=== PATIENT | female | born 1950 | race Caucasian/White ===

== ENCOUNTER → 2019-07-29 | Outpatient (CLI) | payer MEDICARE, BC ==
--- NOTE | 2019-07-29 12:12 | RAD ---
BRAIN W/O CONTRAST Date: 07/29/2019 10:30 AM Indication: Left hand and leg tremors, memory loss Comparison: CT head 09/28/2016. Technique: Multiplanar multisequence MRI of the brain was performed without intravenous contrast using the standard protocol. Findings: No acute infarct. No acute or chronic hemorrhage. The ventricles are normal in size and configuration without hydrocephalus. Mild scattered FLAIR hyperintensities in the subcortical and periventricular deep white matter, a nonspecific finding, most commonly seen with chronic small vessel ischemic disease. Mild generalized cerebral and cerebellar volume loss, appropriate for patient's age. The scalp and calvarium are normal. The pituitary and sella are normal. No Chiari malformation. Mild incompletely characterized degenerative spondylosis of the visualized upper cervical spine. The visualized orbits and globes are normal. The visualized paranasal sinuses are clear. The mastoid air cells are clear. Normal flow voids within the vertebral, basilar, and internal carotid arteries indicating patency. IMPRESSION: No acute infarct, hemorrhage, mass, or hydrocephalus. Mild chronic small vessel ischemic disease and age-appropriate cerebral volume loss.. Electronically signed by: Roel Calixto MD (07/29/2019 12:09 PM) [email or web address]
== END | disposition home or self-care (01) ==
LOC: MRI 09:41
PROVIDERS: ATTEND Psychiatry & Neurology Neurology
DX: I67.82 Cerebral ischemia (principal); R41.3 Other amnesia; G25.0 Essential tremor
CPT/HCPCS: 70551

== ENCOUNTER → 2019-10-01 | Day surgery (SDC) | payer MEDICARE, BC ==
[~2019-10-01] MED LIST: IV RINGERS,LACTATED 1000ML 1,000 ML IV SCH; LISI10TA2 PO; LORA0.5T96 PO; PROP10TA PO; PROPOFOL 20 ML IV ONE
[2019-10-01 08:47] VITALS: BP 129/66
--- NOTE | 2019-10-02 14:07 | PATHOLOGY ---
[facility] Accession Number: [id number] . 01 Material submitted: . hepatic flexure - HEPATIC FLEXURE POLYP BIOPSY . 01 Clinical history: . Positive cologuard . 02 Diagnosis: Colon, hepatic flexure, biopsy: - Adenomatous polyp. . (SK:mm; 10/02/2019) [facility] 10/02/2019 1029 Local . 02 Electronically signed: . Jorge Barry MD, Pathologist NPI- [id number] . 01 Gross description: . Received in formalin labeled "Sharon Oliver, hepatic flexure polyp BX," is a single segment of jimenez soft tissue measuring 0.3 cm in maximum dimension. The specimen is entirely submitted in cassette A1. (TSD; 10/01/2019) TOB/TOB 10/01/2019 2250 Local . 02 Pathologist provided ICD-10: D12.3 . 02 CPT . 992949 Specimen Comment: A courtesy copy of this report has been sent to [phone], [phone] Specimen Comment: [id number] Specimen Comment: Report sent to and Performed at: 01 [facility] [address] [facility] [address], [place] [id number] MD Valentín Delatorre MD Phone: [phone] Performed at: 02 [facility] [place] [address] [place], [place] [id number] MD Russ Rodney MD Phone: [phone]
== END ==
LOC: SURG 06:57
PROVIDERS: ATTEND Internal Medicine Gastroenterology
DX: R19.5 Other fecal abnormalities (principal); D12.3 Benign neoplasm of transverse colon; K64.0 First degree hemorrhoids; F41.9 Anxiety disorder, unspecified; F15.90 Other stimulant use, unspecified, uncomplicated; F32.9 Major depressive disorder, single episode, unspecified; Z98.890 Other specified postprocedural states; Z88.7 Allergy status to serum and vaccine; Z87.39 Personal history of other diseases of the musculoskeletal system and connective tissue; Z72.89 Other problems related to lifestyle; Z90.710 Acquired absence of both cervix and uterus
CPT/HCPCS: 45380; J2704

== ENCOUNTER → 2019-11-11 | Outpatient (CLI) | payer MEDICARE, BC ==
[2019-10-01 08:47] VITALS: BP 129/66
[~2019-11-11] MED LIST changes: +IOHEXOL 240 MG/ML 50ML VIAL. PO ONE; +IOHEXOL 300 MG/ML 100ML VIAL. IV ONE; -IV RINGERS,LACTATED 1000ML 1,000 ML IV SCH; -PROPOFOL 20 ML IV ONE
--- NOTE | 2019-11-11 10:45 | KCIC ---
CHEST PA LATERAL History: Weight loss Comparison: None. Findings: Frontal and lateral views of chest were obtained. The cardiomediastinal silhouette is normal. Pulmonary vasculature is normal. The lungs are clear. No pleural effusion or pneumothorax is seen. There is no acute bone abnormality. This space narrowing of the lower cervical spine noted. IMPRESSION: No acute cardiopulmonary process. Electronically signed by: Frank Joe MD (11/11/2019 10:41 AM) [facility]
--- NOTE | 2019-11-11 10:53 | KCIC ---
Examination: CT of the abdomen pelvis with oral and IV contrast HISTORY: History of weight loss, constipation, pelvic pain COMPARISON: None available TECHNIQUE: Axial CT images of the abdomen pelvis were performed with oral and IV contrast. Coronal and sagittal reformats are performed Exposure: One or more of the following individualized dose reduction techniques were utilized for this examination: 1. Automated exposure control 2. Adjustment of the mA and/or kV according to patient size 3. Use of iterative reconstruction technique FINDINGS: The bibasilar lungs are clear. No evidence of free air identified in the abdomen.The spleen, adrenals grossly appears unremarkable. There is a 9 mm cystic structure identified in the left lobe of the liver probably a cyst. Gallbladder is mildly distended. The stomach is mildly distended. The visualized pancreas grossly appears unremarkable. Small bowel is nondilated. Feces and gas noted in the colon. There is mild thickened appearance of the wall of the distal descending colon and sigmoid colon. Few sigmoid colon diverticulosis identified. The bladder is mildly distended. The bilateral kidneys enhance symmetrically. Mild degenerative changes lumbar spine IMPRESSION: 1. Mild thickened appearance of the distal descending colon and sigmoid colon could be nondistention or mild colitis. 2. 9 mm hepatic cyst. Electronically signed by: Nico Hernandes MD (11/11/2019 10:50 AM) [place] [id number]
== END | disposition home or self-care (01) ==
LOC: KCIC CT 09:02
PROVIDERS: ATTEND Internal Medicine Gastroenterology
DX: K57.30 Diverticulosis of large intestine without perforation or abscess without bleeding (principal); K76.89 Other specified diseases of liver; M48.02 Spinal stenosis, cervical region
CPT/HCPCS: 71046; 74177; 82565; Q9966; Q9967

== ENCOUNTER → 2020-08-05 | Outpatient (CLI) | payer MEDICARE, BC ==
[2019-10-01 08:47] VITALS: BP 129/66
[~2020-08-05] MED LIST changes: -IOHEXOL 240 MG/ML 50ML VIAL. PO ONE; -IOHEXOL 300 MG/ML 100ML VIAL. IV ONE
--- NOTE | 2020-08-09 15:57 | RAD ---
EXAM: MAMMO GUANAKO SCREENING BILATERAL 08/05/2020 2:30 PM CLINICAL INDICATION:69-year-old woman presenting for screening mammogram. COMPARISON:None available. New baseline. TECHNIQUE: Digital bilateral full-field CC and MLO views, and CC and MLO tomosynthesis views of the breasts were obtained. CAD was utilized. FINDINGS: The breasts contain scattered areas of fibroglandular density. There are bilateral breast implants. There is no mass, suspicious calcification, or architectural distortion. IMPRESSION: 1. No mammographic evidence of malignancy. 2. BI-RADS 2-benign. 3. Routine annual screening mammogram is recommended in 1 year. The patient will receive a reminder letter by mail when she is due for her next exam. Electronically signed by: Barb Acosta MD (08/09/2020 3:54 PM) [id number]
== END ==
LOC: MAMMO 14:17
PROVIDERS: ATTEND Specialist
DX: Z12.31 Encounter for screening mammogram for malignant neoplasm of breast (principal)
CPT/HCPCS: 77063; 77067

== ENCOUNTER → 2020-10-08 | Outpatient (CLI) | payer MEDICARE ==
[2019-10-01 08:47] VITALS: BP 129/66
--- NOTE | 2020-10-08 11:14 | KCIC ---
MRI of the brain without contrast 10/08/2020 Clinical History: Dizziness and chronic tremor. Technique: Unenhanced T1-weighted sagittal and axial, T2-weighted axial and coronal and FLAIR, gradie nt echo and diffusion-weighted axial images of the brain were obtained. Findings: Comparison study is dated 07/29/2019. There is generalized parenchymal atrophy. Patchy, confluent and multiple focal areas of increased sig nal intensity are seen within the periventricular and subcortical white matter of both cerebral hemis pheres on the FLAIR and T2-weighted images consistent with areas of small vessel ischemic disease. Th shemar have not significantly changed. No acute parenchymal abnormality is seen. No extra-axial fluid collection is seen. There is no MRI ev idence of acute ischemia/infarction. Mild mucosal thickening is seen scattered throughout the paranasal sinuses. There is a minimal right mastoid effusion. Normal flow voids are seen within the major vascular structures surrounding the bra in parenchyma. Impression: No acute parenchymal abnormality is seen. Electronically signed by: Antony Lemus MD (10/08/2020 11:12 AM) [id number]
== END ==
LOC: KCIC MRI 08:49
PROVIDERS: ATTEND Psychiatry & Neurology Neurology
DX: G31.89 Other specified degenerative diseases of nervous system (principal); J34.89 Other specified disorders of nose and nasal sinuses; H74.8X1 Other specified disorders of right middle ear and mastoid; R41.3 Other amnesia
CPT/HCPCS: 70551

== ENCOUNTER 2020-11-09 13:13 | Emergency (ER) | payer MEDICARE ==
[~2020-11-09] VITALS: Ht 160 cm; Wt 52.3 kg
[~2020-11-09 13:13] MED LIST changes: +LISI10TA16 PO; -LISI10TA2 PO
[2020-11-09 13:58] VITALS: BP 109/76
[2020-11-09] MEDS ORDERED: IV NORMAL SALINE 1000ML BAG 1,000 ML IV ONE (15:00)
[2020-11-09 15:04] LABS: BASO % 0 % (0-3); EOS % 0 % (0-3); HEMATOCRIT 38.7 % (36.0-47.0); HEMOGLOBIN 13.1 g/dL (12.0-15.5); LYMPH # 1.2 x10^3/uL (1.0-4.8); LYMPH % 25 % (24-48); MEAN CORPUSCULAR HEMOGLOBIN 32 pg (25-35); MEAN CORPUSCULAR HGB CONC 34 g/dL (31-37); MEAN CORPUSCULAR VOLUME 93 fL (79-100); MONO # 0.4 x10^3/uL (0.0-1.1); MONO % 8 % (0-9); NEUT # 3.3 x10^3/uL (1.8-7.7); NEUT % 67 % (31-73); PLATELET COUNT 197 x10^3/uL (140-400); RED BLOOD COUNT 4.16 x10^6/uL (3.50-5.40); RED CELL DISTRIBUTION WIDTH 12.8 % (11.5-14.5)
[2020-11-09 15:09] LABS: BILIRUBIN,URINE SMALL (NEG); CLARITY,URINE CLOUDY; COLOR,URINE ORANGE; NITRITE,URINE NEGATIVE (NEG); PROTEIN,URINE 100 mg/dL (NEG-TRACE)
[2020-11-09 15:14] LABS: CALCIUM 9.3 mg/dL (8.5-10.1); GFR 54.5; POTASSIUM 4.2 mmol/L (3.5-5.1)
[2020-11-09 15:15] LABS: AMPHETAMINE/METHAMPHETAMINE NEG (NEG); BARBITURATES NEG (NEG); BENZODIAZEPINES NEG (NEG); CANNABINOIDS NEG (NEG); COCAINE NEG (NEG); METHADONE NEG (NEG); OPIATES NEG (NEG); PHENCYCLIDINE NEG (NEG)
[2020-11-09 15:19] LABS: ALBUMIN 3.6 g/dL (3.4-5.0); ALBUMIN/GLOBULIN RATIO 0.9 (1.0-1.7); TOTAL BILIRUBIN 1.5 mg/dL (0.2-1.0); TOTAL PROTEIN 7.6 g/dL (6.4-8.2)
[2020-11-09 15:23] LABS: RBC,URINE >40 /HPF (0-2)
[2020-11-09 15:24] LABS: BACTERIA,URINE FEW /HPF (0-FEW); WBC,URINE >40 /HPF (0-4)
[2020-11-09] MEDS ORDERED: IOHEXOL 300 MG/ML 100ML VIAL. IV ONE (16:15)
[2020-11-09] MEDS ORDERED: CONTRAST GIVEN. MC PRN (16:15)
--- NOTE | 2020-11-09 16:35 | RAD ---
EXAM: CT Head without IV contrast INDICATION: Altered mental status. Covid positive. TECHNIQUE: Multi-detector row CT images were obtained of the head without the use of IV contrast. All CT scans performed at this facility utilize dose optimization techniques as appropriate to the exam, including the following: Automated exposure control and adjustment of the mA and/or KV according to patient size (this includes techniques or standardized protocols for targeted exams where dose is ind ication/reason for exam). COMPARISON: 09/28/[address] FINDINGS: BRAIN PARENCHYMA: No evidence of acute intraparenchymal hemorrhage or infarct. There is been some int erval volume loss and increase in white matter low density that is nonspecific but compatible chronic ischemic microvascular change. VENTRICLES & EXTRA-AXIAL SPACES: Ventricles are prominent in proportion to the degree of volume loss present. Basilar cisterns are patent. No pathologic extra-axial fluid collection or mass. ORBITS: Orbital contents are unremarkable. SINUSES: Visualized paranasal sinuses and mastoid air cells are clear. OSSEOUS & SOFT TISSUES: Calvarium and skull base are intact. IMPRESSION: No acute intracranial pathology. EXAM: CT Abdomen and Pelvis with IV contrast INDICATION: Reason: LOW ABDOMINAL PAIN / Spl. Instructions: [id number] 60ML / History: TECHNIQUE: Multi-detector row CT images were acquired from the lung bases through the abdomen and pel vis with the use of IV contrast. Sagittal and coronal images were acquired from the transaxial data. All CT scans performed at this facility utilize dose optimization techniques as appropriate to the ex am, including the following: Automated exposure control and adjustment of the mA and/or KV according to patient size (this includes techniques or standardized protocols for targeted exams where dose is indication/reason for exam). IV CONTRAST: Administered ORAL CONTRAST: Not administered COMPARISON: Contrast-enhanced abdomen pelvis CT of 11/11/2019 FINDINGS: LOWER CHEST: Patchy groundglass and minimal consolidative change in the peripheral left lower lobe is new. Partially imaged bilateral breast implants. LIVER: 8mm cyst in the left hepatic lobe (segment IVb) is unchanged. BILIARY SYSTEM: Gallbladder is unremarkable. Bile ducts are not dilated. PANCREAS: Unremarkable SPLEEN: Unremarkable ADRENALS: Unremarkable KIDNEYS & URETERS: Unremarkable BLADDER: Unremarkable REPRODUCTIVE ORGANS: Hysterectomy. No adnexal mass or pelvic fluid collection. GASTROINTESTINAL: Scattered colonic diverticuli. No findings of acute diverticulitis or otherwise santa dence of acute bowel inflammation. The stomach, small bowel, and colon are otherwise unremarkable. Th e appendix is none well seen but there are no findings of acute appendicitis.. MESENTERY/PERITONEUM/RETROPERITONEUM: Unremarkable VASCULAR: Unremarkable LYMPH NODES: No adenopathy OSSEOUS & SOFT TISSUES: Unremarkable IMPRESSION: Colonic diverticulosis with no specific cause for lower abdominal pain noted. Electronically signed by: David Smith MD (11/09/2020 4:33 PM) [id number]
--- NOTE | 2020-11-09 17:46 | PHYS DOC ---
Past Medical History Past Medical History: Anxiety, Bipolar, Depression, Hypertension Additional Past Medical Histor: COVID 10/30/2020, osteoporosis, renal atrophy Past Surgical History: Appendectomy, Hysterectomy Smoking Status: Never Smoker Alcohol Use: None General Adult EDM: Chief Complaint: ABDOMINAL PAIN HPI: HPI: Patient is a 70 year old female presents emergency department with daughter at bedside. Patient's daughter states that the patient has been experiencing increased fatigue and weakness along with not eating very well and worsening memory issues for several months. Patient's daughter states that the patient was diagnosed with Covid on 2020. The patient states that she feels fine, patient states that she has some low abdominal pain and vaginal pain with urination. Patient denies shortness of breath, denies chest pains, denies chest palpitations, denies nausea, vomiting, diarrhea or constipation. Patient denies recent fever or chills. Patient states she had an appendectomy when she was 12 years old and had a hysterectomy when she was 55 years old. She denies any other physical symptoms or physical complaints. Review of Systems: Review of Systems: My ROS. Heart Score: Risk Factors: Risk Factors: DM, Current or recent (<one month) smoker, HTN, HLP, family history of CAD, obesity. Risk Scores: Score 0 - 3: 2.5% MACE over next 6 weeks - Discharge Home Score 4 - 6: 20.3% MACE over next 6 weeks - Admit for Clinical Observation Score 7 - 10: 72.7% MACE over next 6 weeks - Early Invasive Strategies Current Medications: Current Medications Medications (Trade) Dose Ordered Sig/Terry Start Time Stop Time Status Last Admin Dose Admin Info (CONTRAST GIVEN -- Rx MONITORING) 1 each PRN DAILY PRN 11/09/20 16:15 11/11/20 16:14 Iohexol (Omnipaque 300 Mg/ml) 60 ml 1X ONCE 11/09/20 16:15 11/09/20 16:16 DC 11/09/20 16:18 60 ML Sodium Chloride 1,000 ml @ 1,000 mls/hr 1X ONCE 11/09/20 15:00 11/09/20 15:59 DC 11/09/20 15:22 1,000 MLS/HR Allergies: Allergies: Allergies Coded Allergies Type Severity Reaction Last Updated Verified pneumococcal vaccine Allergy Intermediate 10/01/19 Yes Physical Exam: PE: Constitutional: Well developed, well nourished, no acute distress, non-toxic appearance. HENT: Normocephalic, atraumatic, bilateral external ears normal, oropharynx moist, no oral exudates, nose normal. Eyes: PERRLA, EOMI, conjunctiva normal, no discharge. Neck: Normal range of motion, no tenderness, supple, no stridor. Cardiovascular:Heart rate regular rhythm, no murmur Lungs & Thorax: Bilateral breath sounds clear to auscultation Abdomen: Bowel sounds normal, soft, no tenderness, no masses, no pulsatile masses. Skin: Warm, dry, no erythema, no rash. Back: No tenderness, no CVA tenderness. Extremities: No tenderness, no cyanosis, no clubbing, ROM intact, no edema. Neurologic: Alert and oriented X 3, normal motor function, normal sensory function, no focal deficits noted. Psychologic: Affect normal, judgement normal, mood normal. Current Patient Data: Labs: Laboratory Tests Test 11/09/20 14:00 11/09/20 14:10 Urine Collection Type Unknown Urine Color [place] Urine Clarity Cloudy Urine pH 6.0 (<5.0-8.0) Urine Specific [place] 1.025 (1.000-1.030) Urine Protein 100 mg/dL (NEG-TRACE) Urine Glucose (UA) Negative mg/dL (NEG) Urine Ketones (Stick) 40 mg/dL (NEG) Urine Blood Large (NEG) Urine Nitrite Negative (NEG) Urine Bilirubin Small (NEG) Urine Urobilinogen Dipstick 1.0 mg/dL (0.2 mg/dL) Urine Leukocyte Esterase Large (NEG) Urine RBC >40 /HPF (0-2) Urine WBC >40 /HPF (0-4) Urine Squamous Epithelial Cells Occ /LPF Urine Bacteria Few /HPF (0-FEW) Urine Mucus Slight /LPF Urine Opiates Screen Neg (NEG) Urine Methadone Screen Neg (NEG) Urine Barbiturates Neg (NEG) Urine Phencyclidine Screen Neg (NEG) Urine Amphetamine/Methamphetamine Neg (NEG) Urine Benzodiazepines Screen Neg (NEG) Urine Cocaine Screen Neg (NEG) Urine Cannabinoids Screen Neg (NEG) Urine Ethyl Alcohol Neg (NEG) White Blood Count 5.0 x10^3/uL (4.0-11.0) Red Blood Count 4.16 x10^6/uL (3.50-5.40) Hemoglobin 13.1 g/dL (12.0-15.5) Hematocrit 38.7 % (36.0-47.0) Mean Corpuscular Volume 93 fL (79-100) Mean Corpuscular Hemoglobin 32 pg (25-35) Mean Corpuscular Hemoglobin Concent 34 g/dL (31-37) Red Cell Distribution Width 12.8 % (11.5-14.5) Platelet Count 197 x10^3/uL (140-400) Neutrophils (%) (Auto) 67 % (31-73) Lymphocytes (%) (Auto) 25 % (24-48) Monocytes (%) (Auto) 8 % (0-9) Eosinophils (%) (Auto) 0 % (0-3) Basophils (%) (Auto) 0 % (0-3) Neutrophils # (Auto) 3.3 x10^3/uL (1.8-7.7) Lymphocytes # (Auto) 1.2 x10^3/uL (1.0-4.8) Monocytes # (Auto) 0.4 x10^3/uL (0.0-1.1) Eosinophils # (Auto) 0.0 x10^3/uL (0.0-0.7) Basophils # (Auto) 0.0 x10^3/uL (0.0-0.2) Sodium Level 138 mmol/L (136-145) Potassium Level 4.2 mmol/L (3.5-5.1) Chloride Level 101 mmol/L (98-107) Carbon Dioxide Level 23 mmol/L (21-32) Anion Gap 14 (6-14) Blood Urea Nitrogen 18 mg/dL (7-20) Creatinine 1.0 mg/dL (0.6-1.0) Estimated GFR (Cockcroft-Gault) 54.5 BUN/Creatinine Ratio 18 (6-20) Glucose Level 94 mg/dL (70-99) Calcium Level 9.3 mg/dL (8.5-10.1) Total Bilirubin 1.5 mg/dL (0.2-1.0) H Aspartate Amino Transferase (AST) 22 U/L (15-37) Alanine Aminotransferase (ALT) 21 U/L (14-59) Alkaline Phosphatase 71 U/L (46-116) Total Protein 7.6 g/dL (6.4-8.2) Albumin 3.6 g/dL (3.4-5.0) Albumin/Globulin Ratio 0.9 (1.0-1.7) L Laboratory Tests 11/09/20 14:10 Laboratory Tests 11/09/20 14:10 Vital Signs: Vital Signs Date Time Temp Pulse Resp B/P (MAP) Pulse Ox O2 Delivery O2 Flow Rate FiO2 11/09/20 13:54 98.3 74 18 128/75 (92) 99 Room Air 98.3 EKG: EKG: EKG performed at 1353 by ED nursing staff, heart rate 72 bpm, normal sinus rhythm without ectopy, HI interval 0.156, QTc interval 0.453, no acute STEMI, no acute ACS, no acute ischemia noted, EKG interpreted by ED attending physician Dr. Pa. Radiology/Procedures: Radiology/Procedures: [] Course & Med Decision Making: Course & Med Decision Making Pertinent Labs and Imaging studies reviewed. (See chart for details) 70-year-old female patient presents emergency department vital signs reviewed, physical exam was unremarkable, patient has a history of worsening memory issues however was worked up by neurology at the beginning of October 2020 and was negative for Alzheimer's, per patient's daughter the patient has stress memory issues. Related to patient's daughter who lives with the patient's complaint of altered mental status a CT head was performed. CT read negative by house radiologist or rotation, patient's labs were equivocal, patient's urine was infected, will start patient on p.o. Keflex and discharged home. Patient and patient's daughter gave verbal understanding of discharge home instructions, follow-up with primary care this week, return to emergency department precautions and concerns, had no further questions or concerns discharged home. Patient's altered mental status most likely related to urinary tract infection however patient was not septic. Impression: UTI Dragon Disclaimer: Dragon Disclaimer: This electronic medical record was generated, in whole or in part, using a voice recognition dictation system. Departure Departure Impression: Primary Impression: UTI (urinary tract infection) Qualified Codes: N39.0 - Urinary tract infection, site not specified; R31.9 - Hematuria, unspecified Disposition: 01 DC HOME SELF CARE/HOMELESS Condition: IMPROVED Referrals: DE WOLFF MD (PCP) Patient Instructions: Urinary Tract Infection Additional Instructions: Take medications as prescribed, see your doctor this week for reevaluation, return to the emergency department for worsening symptoms or other concerns. Scripts Cephalexin (CEPHALEXIN) 500 Mg Tablet 1 TAB PO BID for UTI for 7 Days, #14 TAB 0 Refills Prov: KENNEDY ARRIAZA APRN 11/09/20 KENNEDY ARRIAZA APRN Nov 09, 2020 17:46
[2020-11-09] MEDS ORDERED: CEPH500T PO (18:04)
[2020-11-09] MEDS ORDERED: CEPHALEXIN 250 MG CAPSULE. PO STA (18:05)
--- NOTE | 2020-11-10 07:38 | EKG ---
[facility] [address] [place] [address] Test Date: 2020-11-09 Test Time: 13:53:01 Pat Name: MARIANA KEENE Department: Room: Gender: F Patient Scheduling Coordinator: : 1950 Requested By: KENNEDY ARRIAZA Order Number: [id number] Reading MD: Measurements Intervals [place] Rate: 72 P: 50 [place]: 156 QRS: -38 QRSD: 76 T: 49 QT: 412 QTc: 453 Interpretive Statements SINUS RHYTHM ABNORMAL LEFT AXIS DEVIATION LEFT ANTERIOR FASCICULAR BLOCK QRS(T) CONTOUR ABNORMALITY CONSIDER ANTEROLATERAL MYOCARDIAL DAMAGE ABNORMAL ECG RI6.01 No previous ECG available for comparison
== END 2020-11-09 18:17 | disposition home or self-care (01) ==
LOC: ER 13:13
DX: N39.0 Urinary tract infection, site not specified (principal); R31.9 Hematuria, unspecified; I10 Essential (primary) hypertension; F31.9 Bipolar disorder, unspecified; F41.9 Anxiety disorder, unspecified; Z90.89 Acquired absence of other organs; Z90.710 Acquired absence of both cervix and uterus; Z88.7 Allergy status to serum and vaccine; Z79.899 Other long term (current) drug therapy
CPT/HCPCS: 36415; 70450; 74177; 80053; 80307; 81001; 85025; 87086; 93005; 96360; 99285; J7030; Q9967